=== PATIENT | male | born 1985 | race Caucasian/White ===

== ENCOUNTER 2025-02-02 12:47 | Day surgery (SDC) | payer OTHER | END 2025-02-02 14:45 | disposition home or self-care (01) | LOC: ORSCSDS 12:47 | PROC: 0DJD8ZZ Inspection of Lower Intestinal Tract, Via Natural or Artificial Opening Endoscopic (ICD-10-PCS; principal; 2025-02-02) | DX: R10.9 Unspecified abdominal pain (principal); R10.13 Epigastric pain ==